=== PATIENT | male | born 1975 | race Caucasian/White ===

== ENCOUNTER 2019-03-05 18:25 | Emergency (ER) | payer OTHER ==
[2019-03-05] MEDS: HYDROCODONE/APAP (5/325) TAB PO (19:05)
== END 2019-03-05 21:25 | disposition home or self-care (01) ==
LOC: FTE 18:25
DX: S80.11XA Contusion of right lower leg, initial encounter (principal); M25.561 Pain in right knee; S09.90XA Unspecified injury of head, initial encounter; S19.9XXA Unspecified injury of neck, initial encounter; Y04.2XXA Assault by strike against or bumped into by another person, initial encounter; Z87.891 Personal history of nicotine dependence
CPT/HCPCS: 70450; 72125; 73550; 73562; 99284-25